=== PATIENT | female | born 1980 | race Caucasian/White ===

== ENCOUNTER → 2018-10-30 09:00 | Outpatient (CLI) | payer OTHER, SELFPAY ==
[2018-11-02 13:30] LABS: HPV Reflexed? NOT INDICATED
== END ==
PROVIDERS: Visit Provider Obstetrics & Gynecology
DX: Z12.4 Encounter for screening for malignant neoplasm of cervix (principal)
CPT/HCPCS: 87624; 88175; G0145

== ENCOUNTER → 2019-11-06 10:01 | Outpatient (CLI) | payer OTHER, SELFPAY ==
[2015-09-07 06:36] VITALS: BMI 23.7
[2019-11-06 11:17] LABS: EXAGEN MAILED SPECIMEN
[2019-11-06 12:20] LABS: Absolute Lymphocyte Count 1.91 X10^3/uL (0.83-4.51); Absolute Neutrophil Count 5.3 X10^3/uL (2.0-7.7); Basophil# 0.03 X10^3/uL; Basophil% 0.4 % (0-1); Eosinophil# 0.04 X10^3/uL; Eosinophils% 0.5 % (0-5); Hematocrit 44.7 % (37-47); Hemoglobin 14.6 g/dL (12.0-15.0); Lymphocyte # 1.91 X10^3/ul (4.0); Lymphocyte % 24.2 % (19-41); Mean Corp Hgb Conc 32.7 g/dL (32-36); Mean Corpuscular Hgb 29.6 pg (27.0-32.0); Mean Corpuscular Volume 90.5 fL (81-99); Mean Platelet Vol. 10.8 fl (6.2-12.0); Monocyte# 0.55 X10^3/uL; NRBC Flagged by Analyzer 0 % (0-5); Neutrophil # 5.33 X10^3/uL (2.7-7.7); Neutrophil % 67.5 % (47-70); Platelet Count 240 K/mm3 (150-450); RBC Distribution Width CV 12.4 % (11.6-14.6); Red Blood Count 4.94 M/mm3 (4.2-5.4); White Blood Count 7.9 K/mm3 (4.4-11.0)
[2019-11-06 12:21] LABS: ALB/GLOB Ratio 1.2 RATIO (0.9-2.4); AST(SGOT) 20 U/L (15-37); Alanine Aminotransfer ALT/SGPT 22 U/L (13-56); Albumin, Serum 4.3 g/dL (3.2-5.0); Alkaline Phosphatase 37 U/L (45-117); Anion Gap 6 (5-15); BUN 21 mg/dL (7-18); BUN/Creat Ratio 20.8 RATIO (10-20); CRP < 2.90 mg/L (0.0-3.0); Calcium,Total 9.1 mg/dL (8.5-10.1); Chloride 103 mmol/L (98-107); Color, Urine Yellow (Yellow); Creatinine, Serum 1.01 mg/dL (0.55-1.02); EST Glomerular Filtration Rate 64 mL/min (>60); Est Glom Filt Rate - Afr Amer 78 mL/min (>60); Globulin 3.6 g/dL (2.2-4.2); Glucose 85 mg/dL (74-106); Glucose, Dipstick Normal (Normal); Ketone-Dipstick Negative (Negative); Leukocyte Esterase-Dipstick Negative /ul (Negative); Nitrite-Dipstick Negative (Negative); Occult Blood-Urine Negative /ul (Negative); Potassium 3.8 mmol/L (3.5-5.1); Protein, Total 7.9 g/dL (6.4-8.2); Protein-Dipstick Negative (Negative); Sodium Level 137 mmol/L (136-145); Urine Bilirubin Dipstick Negative (Negative); Urine Clarity Clear (Clear); Urine Urobilinogen Normal (Normal)
[2019-11-06 12:33] LABS: Protein, Urine (Random) < 6.0 mg/dL (<11.9)
[2019-11-06 13:23] LABS: Hepatitis B Surface Antibody Reactive; Hepatitis B Surface Antigen Non-Reactive (Nonreactive); Hepatitis C Antibody Non-Reactive (Nonreactive)
[2019-11-06 22:32] LABS: Erythrocyte Sedimentation Rate < 1 mm/hr (0-20)
[2019-11-07 17:00] LABS: Hepatitis B Core AB IgM Negative (Negative)
== END ==
PROVIDERS: PCP Internal Medicine; Referring Provider Internal Medicine Rheumatology; Visit Provider Internal Medicine Rheumatology
DX: L40.59 Other psoriatic arthropathy (principal); R76.8 Other specified abnormal immunological findings in serum; L40.8 Other psoriasis; Q66.71 Congenital pes cavus, right foot; E03.9 Hypothyroidism, unspecified; I83.93 Asymptomatic varicose veins of bilateral lower extremities
CPT/HCPCS: 36415; 80053; 81002; 82570; 84156; 85025; 85652; 86140; 86705; 86706; 86803; 87340

== ENCOUNTER → 2021-06-08 09:00 | Outpatient (CLI) | payer OTHER, SELFPAY ==
[2021-06-11 20:05] LABS: HPV Reflexed? NOT INDICATED
== END ==
PROVIDERS: PCP Internal Medicine; Visit Provider Obstetrics & Gynecology
DX: Z12.4 Encounter for screening for malignant neoplasm of cervix (principal)
CPT/HCPCS: 88175; G0145

== ENCOUNTER → 2023-12-27 | Outpatient (CLI) | payer OTHER, SELFPAY ==
[2023-12-31 22:06] LABS: HPV APTIMA, High Risk Negative (Negative)
== END | disposition home or self-care (01) ==
LOC: LABSPEC 13:13
PROVIDERS: PCP Internal Medicine; Referring Provider Nurse Practitioner Women's Health; Visit Provider Nurse Practitioner Women's Health
DX: Z12.4 Encounter for screening for malignant neoplasm of cervix (principal)
CPT/HCPCS: 87624; 88175; G0145

== ENCOUNTER → 2024-01-02 | Outpatient (CLI) | payer OTHER, SELFPAY ==
--- NOTE | 2024-01-02 08:17 | US_ITS ---
INDICATION: bleeding EXAMINATION: Ultrasound US Pelvis Non OB Complete With Transvaginal Imaging COMPARISON: None. FINDINGS: 90 grayscale ultrasound images of the pelvis obtained both transabdominally and transvaginally. In addition dedicated ovarian color Doppler and Doppler waveform interrogation was performed. UTERUS: Uterus measures : 11.9 x 6.9 x 5.7 cm. Endometrial thickness of 0.7 cm, which contains trace amount of stool endometrial fluid. Myometrium is unremarkable. ADNEXA: Flow is documented to bilateral ovaries by color Doppler as well as Doppler waveform. Few scattered bilateral small peripheral ovarian follicles, dominant anechoic lesion of 1.6 cm on the right. Small amount of cul-de-sac free fluid. URINARY BLADDER: Adequately distended urinary bladder without obvious abnormality, 667 cc volume. US/Pelvic w/ Transvaginal IMPRESSION: Few scattered bilateral small peripheral ovarian follicles, dominant anechoic lesion of 1.6 cm on the right. Electronically Signed: Yonas Higuera MD at 6:28 EDT ,
== END | disposition home or self-care (01) ==
LOC: OPUS 08:15
PROVIDERS: PCP Internal Medicine; Referring Provider Nurse Practitioner Women's Health; Visit Provider Nurse Practitioner Women's Health
DX: N92.1 Excessive and frequent menstruation with irregular cycle (principal)
CPT/HCPCS: 76830; 76856

== ENCOUNTER → 2025-01-07 | Outpatient (CLI) | payer OTHER, SELFPAY | END | disposition home or self-care (01) | LOC: LABSPEC 15:45 | PROVIDERS: PCP Internal Medicine; Referring Provider Nurse Practitioner Women's Health; Visit Provider Nurse Practitioner Women's Health | DX: R30.0 Dysuria (principal); N92.1 Excessive and frequent menstruation with irregular cycle; R14.0 Abdominal distension (gaseous); N83.8 Other noninflammatory disorders of ovary, fallopian tube and broad ligament; N89.8 Other specified noninflammatory disorders of vagina | CPT/HCPCS: 87070; 87077; 87086; 87088; 87186; 87205 ==

== ENCOUNTER → 2025-01-20 | Outpatient (CLI) | payer OTHER, SELFPAY ==
--- NOTE | 2025-01-20 12:21 | US_ITS ---
PROCEDURE: PELVIC W/ TRANSVAGINAL REASON FOR EXAM: BLOATING, ENLARGE OVARY TECHNIQUE: PELVIC W/ TRANSVAGINAL COMPARISON: Prior study dated January 02, 2024. FINDINGS: LMP: January 02, 2025. Measurements: Uterus: 10.7 cm x 6 cm x 4.6 cm with a volume of 154.7 mL Endometrial Thickness: 11.9 mm there appears to be a 1.1 cm x 0.6 cm x 0.5 cm endometrial polyp. Right Ovary: 3.9 cm x 3.1 cm x 2.8 cm with a volume of 17.24 mL. Left Ovary: 1.6 cm x 1.5 cm x 1.4 cm with a volume of 393.7 mL. TRANSABDOMINAL: Uterus: Heterogeneous echotexture of the myometrium suggestive of fibroid change although no definite fibroid is seen. Nabothian cysts. Endometrium: 11.9 mm. Endometrial polyp. Right ovary: 3.5 cm x 2.7 cm x 2.4 cm right ovarian cyst. Left ovary: Normal size and echotexture. Other: No large pelvic mass identified. Transvaginal sonography was performed to better visualize the endometrium. TRANSVAGINAL: Uterus: Fibroid change. Endometrium: Endometrium measures 11.9 mm. There is evidence of a 1.1 cm x 0.6 cm 0.5 cm endometrial polyp. Right ovary: 3.5 cm x 2.7 cm x 2.4 cm simple right ovarian cyst. Left ovary: Normal size and echotexture. Other adnexal findings: None. Cul-de-sac: No free intraperitoneal fluid identified. Tenderness: No tenderness US/Pelvic w/ Transvaginal IMPRESSION: Fibroid change of the myometrium. Small polyp in the endometrium as described. 3.5 cm x 2.7 cm 2.4 cm simple right ovarian cyst. Reading Location: [place] [id number]
== END | disposition home or self-care (01) ==
PROVIDERS: PCP Internal Medicine; Referring Provider Nurse Practitioner Women's Health; Visit Provider Nurse Practitioner Women's Health
DX: N92.1 Excessive and frequent menstruation with irregular cycle (principal); R14.0 Abdominal distension (gaseous); N83.8 Other noninflammatory disorders of ovary, fallopian tube and broad ligament
CPT/HCPCS: 76830; 76856

== ENCOUNTER → 2025-03-26 | Outpatient (CLI) | payer OTHER, SELFPAY ==
--- NOTE | 2025-03-26 12:46 | US_ITS ---
PROCEDURE: PELVIC W/ TRANSVAGINAL REASON FOR EXAM: F/U ON CYST TECHNIQUE: Procedure Code: [id number] Modality: US Procedure: PELVIC W/ TRANSVAGINAL COMPARISON: Prior study dated January 20, 2025. FINDINGS: Measurements: Uterus: 10.8 cm x 7.6 cm x 5.9 cm with a volume of 292.4 mL Endometrial Thickness: 13 mm. Right Ovary: 3 cm x 3.7 cm x 1.2 cm with a volume of 10.4 mL. Left Ovary: 3.2 cm x 3.6 cm x 2.1 cm with a volume of 17 mL. TRANSABDOMINAL: Uterus: Heterogeneous echotexture in keeping with fibroid change although no focal fibroid is seen. Endometrium: Endometrium measures 13 mm. This may be related to the patient's menstrual cycle. Right ovary: Normal size and echotexture. The previously seen right ovarian cyst has resolved. Left ovary: Normal size and echotexture. Other: No large pelvic mass identified. Transvaginal sonography was performed to better visualize the endometrium. TRANSVAGINAL: Uterus: Anteverted. Fibroid change although no focal fibroid is seen. There is evidence of a 9 mm x 11 mm x 4 mm endometrial polyp. Endometrium: Findings suggestive of a 9 mm x 11 mm x 4 mm endometrial polyp. Right ovary: Normal size and echotexture. Left ovary: Normal size and echotexture. Other adnexal findings: None. Cul-de-sac: No free intraperitoneal fluid identified. Tenderness: No tenderness US/Pelvic w/ Transvaginal IMPRESSION: Interval resolution of the previously seen right ovarian cyst. Findings suggestive of a 9 mm x 11 mm x 4 mm polyp. Reading Location: [place] [address]
== END | disposition home or self-care (01) ==
LOC: US 12:42
PROVIDERS: Referring Provider Nurse Practitioner Women's Health; Visit Provider Nurse Practitioner Women's Health
DX: N83.201 Unspecified ovarian cyst, right side (principal)
CPT/HCPCS: 76830; 76856

== ENCOUNTER → 2025-04-01 | Outpatient (CLI) | payer OTHER, SELFPAY | END | disposition home or self-care (01) | LOC: LABSPEC 12:09 | PROVIDERS: Referring Provider Obstetrics & Gynecology; Visit Provider Obstetrics & Gynecology | DX: R10.2 Pelvic and perineal pain (principal) | CPT/HCPCS: 87086 ==

== ENCOUNTER 2025-04-08 10:18 | Day surgery (SDC) | payer OTHER, SELFPAY ==
--- OUTSIDE RECORDS SUMMARY | 2025-02-22 13:12 | XMS RPT_ITS ---
Author Name Auto Generated Organization OHIP Care Team Providers Care Refractory Worker Name Role Phone YG COPELAND MD Consulting Unavailable PAULINASOFIA Camejo Admitting Unavailable PAULINA, SOFIA MERCADO Attending Unavailable PAULINA, SOFIA MERCADO Primary Care Unavailable PROVIDER, UNKNOWN Consulting Unavailable PROVIDER, UNKNOWN Consulting Unavailable PROVIDER, UNKNOWN Consulting Unavailable YG COPELAND MD Consulting Unavailable [facility] Admitting Unavailable [facility] Attending Unavailable [facility] Primary Care Unavailable PROVIDER, UNKNOWN Consulting Unavailable PROVIDER, UNKNOWN Consulting Unavailable PROVIDER, UNKNOWN Consulting Unavailable YG COPELAND MD Primary Care Unavailable YG COPELAND MD Admitting Unavailable YG COPELAND MD Attending Unavailable YG COPELAND MD Consulting Unavailable PROVIDER, UNKNOWN Consulting Unavailable PROVIDER, UNKNOWN Consulting Unavailable PROVIDER, UNKNOWN Consulting Unavailable TOMASA, LIZBETH Y Admitting Unavailable LATOUYG Grissom MD Consulting Unavailable TOMASA, LIZBETH Y Attending Unavailable TOMASA, LIZBETH Y Primary Care Unavailable PROVIDER, UNKNOWN Consulting Unavailable PROVIDER, UNKNOWN Consulting Unavailable PROVIDER, UNKNOWN Consulting Unavailable YG COPELAND MD Consulting Unavailable JACOME, RODNEY Admitting Unavailable JACOME, RODNEY Attending Unavailable JACOME, RODNEY Primary Care Unavailable PROVIDER, UNKNOWN Consulting Unavailable PROVIDER, UNKNOWN Consulting Unavailable PROVIDER, UNKNOWN Consulting Unavailable JOSE, FERMIN E Admitting Unavailable JOSE, FERMIN aLma Attending Unavailable JOSE, FERMIN E Primary Care Unavailable PROBLEMS DATE TYPE CONDITION / CODE ATTENDING STATUS MEGHNA E 09/10/2024 Principle Diagnosis Encounter for general adult medical examination without abnormal findings / Z0000(ICD-10) YG COPELAND MD Active [facility] PROCEDURES No Procedure Records Found RESULTS ED SUPER BILL Observed: 02/22/2025 1:12 PM Status: F Source: [facility] BIANCA RAO, : 1980, , [address] [address] [id number] 02/22/2025 Patient: BIANCA RAO Sex: Female : 1980 Age: 44y Item Facility Professional Category Description Code Code Quantity Fee Total Nurse/E/M EMERGENCY 886621 1 $0.00 $0.00 DEPARTMENT VISIT LOW/MODER SEVERITY (35749-93) Nurse/IV/IM/Infusions IM/SQ (23985) 986122 1 $0.00 $0.00 Nurse/Procedures One vaccine 603469 1 $0.00 $0.00 (11897) Nurse/Supplies Laceration 980224 1 $0.00 $0.00 Tray (767017) Nurse/Supplies Suture (per 240103 1 $0.00 $0.00 pack) (400518) Physician/Wound Wound Repair [id number] 568649 1 $0.00 $0.00 Care (55987) Grand Total $0.00 Providers Fermin Garcia D.O. 1 of 2 [facility] - BIANCA RAO, : 1980, , Chief Complaint INJURY TO HEAD. Principal Diagnosis Minor closed head injury. Single deep laceration to the forehead. No foreign body present. Treatment of laceration not delayed. ICD-10 Codes S01.81xA: Laceration without foreign body of other part of head, initial encounter S06.890A: Other specified intracranial injury without loss of consciousness, initial encounter 2 of 2 ED NURSES CLINICAL NOTE Observed: 2024 1:12 PM Status: F Source: [facility] Nurse Narrative - JIM RAO, : 1980, , Nurse Clinical Narrative [address] [address] [id number] 02/22/2025 13:12:00 Patient: BIANCA RAO Sex: Female : 1980 Age: 44y Disposition: Discharge to Home Disposition Decision Time: 14:14 02/22/2025 Departure Time: 14:20 02/22/2025 TRIAGE Arrived by private vehicle. Historian: (patient). Patient has a primary care physician. Primary physician (formerly vandana). Triage time: 13:29 02/22/2025. Acuity: LEVEL 4. Chief Complaint: INJURY TO FOREHEAD. The patient sustained a laceration. Mechanism of injury: puncture wound. ( pt states she was moving a ladder and knocked a deer mount off the wall and an antler hit her above the left brow. wound present, bleeding controlled.). No loss of consciousness. Not currently taking anticoagulation therapy. SEPSIS SCREEN: NEGATIVE. SIRS criteria negative. No possible sources of infection. -- 13:35 02/22/25 RANJITH Marin R.N. 13:34 02/22/25. BP: 102/60 MAP: 74. HR: 52. RR: 16. O2 saturation: 98% Temperature: 98.3 F. Pain level now 12/17. -- 13:35 02/22/25 RANJITH Marin R.N. Measurements: 13:35 02/22/25 Wt: 71.7 kg, Ht/Migel: 67.0 in, BMI: 24.75 -- 13:35 02/22/25 RANJITH Marin R.N. Medications: levothyroxine 175 mcg tablet -- 13:32 02/22/25 RANJITH Marin R.N. 1 of 4 Nurse Narrative - BIANCA RAO, : 1980, , levothyroxine 175 mcg tablet: 350 mcg . (one day a week) -- 13:34 02/22/25 RANJITH Marin R.N. levothyroxine 175 mcg tablet: (six days a week) -- 13:34 02/22/25 RANJITH Marin R.N. liothyronine 25 mcg tablet -- 13:36 02/22/25 RANJITH Marin R.N. Allergies: Penicillins -- 13:31 02/22/25 RAFIT Pete Marin R.N. Problems: Hypothyroidism -- 13:32 02/22/25 RANJITH Marin R.N. Surgeries: deep vein ablation -- 13:32 02/22/25 RANJITH Marin R.N. History 13:29 02/22/25. SOCIAL HX: Never smoker. No alcohol use or drug use. The patient has not traveled outside the [place] Infectious disease exposure: No infectious disease exposure. ABUSE ASSESSMENT: Abuse denied. SELF HARM ASSESSMENT: Self harm assessment was performed. The patient answered no to the question(s) Do you have thoughts of harming or killing yourself? and Do you have a plan for harming or killing yourself?. FALL RISK ASSESSMENT: Fall risk assessment completed. No risk factors identified. -- 13:35 02/22/25 EDT Ptee Marin R.N. Interventions 13:29 02/22/25. Advanced care plan discussed with patient. Patient does not have advanced directive. -- 13:35 02/22/25 EDT Pete Marin R.N. PHYSICAL ASSESSMENT 2 of 4 Nurse Narrative - BIANCA RAO, : 1980, , 13:41 02/22/25. GENERAL / NEURO / PSYCH: Alert. Oriented X 4. Appears in no acute distress. ( Pt arrives ambulatory to ER#6 c/o forehead laceration, 1 cm laceration to the left lower forehead with bleeding controlled. Pt offers deer head mount fell approximately 2-3 inches onto her head. PT reports she did fall back due to pain, denies LOC. Pt offers attempted to go to urgent care but was sent here for a further evaluation.). Pupillary exam: Pupils are equal, round, and reactive to light. Right pupil 3mm. Left pupil: 3mm. HEENT: Forehead: tenderness, 1.0 cm laceration with controlled bleeding and single puncture wound of the lower left side of the forehead. No erythema, swelling, ecchymosis, petechiae or abrasion. No foreign body or deformity. Pupils equal, round and reactive to light. No swelling of head. Mucous membranes are pink. SKIN: Skin is warm and dry. -- 13:46 02/22/25 EDT Keke Mccormick R.N. NURSING PROGRESS NOTES 13:43 02/22/25. ED physician at the patient's bedside (13:43 02/22/2025). -- 13:46 02/22/25 EDT Keke Mccormick R.N. 13:49 02/22/25. Tdap IM DIPTH/TETANUS/PERT > 7yr and older 0.5 mL given. (Lot#: [id number], expiration date: 05/08/2027, rubber off: [email or web address]). Given in the left deltoid. Allergies verified and confirmed 5 rights. Information reviewed with patient. Vaccine information statement (08/09/2024) provided to the patient. -- 13:50 02/22/25 EDT Keke Mccormick R.N. 13:58 02/22/25. WOUND REPAIR: Wound repair performed by ED physician. The wound is located on the forehead. The wound is linear. Preparation: suture tray set-up with 2% lidocaine. Wound cleansed per physician and irrigated per physician. Procedure: wound repaired with sutures. Post-procedure: the patient was stable, bleeding controlled and neuro-vascular status intact distal to wound. -- 13:59 02/22/25 EDT Keke Mccormick R.N. DISPOSITION / DISCHARGE 14:19 02/22/25. BP: 120/60 MAP: 80. HR: 52. RR: 14. O2 saturation: 97% Temperature: 98.2 F. Pain level now 2/10. -- 14:20 02/22/25 EDT Pete Marin R.N. Departure time: 14:20 02/22/2025. Condition at departure: improved. No learning barriers present. Discharge instructions provided and reviewed with the patient. Patient verbalized understanding. Written instructions provided in Yoruba. The patient was discharged by the physician. The patient was discharged home and accompanied by parent. The patient left ambulatory and via private vehicle. Patient driving. -- 14:20 02/22/25 EDT Pete Marin R.N. (Electronically signed by Keke Mccormick R.N. 02/22/25 14:50:40 EDT) 3 of 4 Nurse Narrative - BIANCA RAO, : 1980, , Generated by [facility] 4 of 4 ED PHYSICIAN CLINICAL REPORT Observed: 02/22/2025 1:12 PM Status: F Source: [facility] Narrative - BIANCA RAO, : 1980, , Physician Clinical Narrative [address] [address] [id number] 02/22/2025 13:12:00 Patient: BIANCA RAO Sex: Female : 1980 Age: 44y Disposition: Discharge to Home Disposition Decision Time: 14:14 02/22/2025 Departure Time: 14:20 02/22/2025 Measurements Wt: 71.7 kg, Ht/Migel: 67.0 in, BMI: 24.75 Initial Vital Sign Measured Time BP MAP HR RR O2Sat ETCO2 Temp Pain GCS RTS 13:34 02/22/2025 102/60 74 52 16 98% 98.3 F 6 Time Seen: 13:36 02/22/2025. Arrived- By private vehicle. Historian- patient. HISTORY OF PRESENT ILLNESS Chief Complaint: INJURY TO HEAD. Location of injuries- (patient was cleaning and a deer antler fell and struck her in the left side of the forehead. She complained of pain to the forehead. Fell about 3 ft with constant burning pain nothing makes better or worse. He has been a healthy person other than some vein surgeries. She does not smoke she rarely drinks alcohol and presents to the emergency department after being at the urgent care and they sent her here to the emergency department). The injury occurred just prior to arrival. Occurred at home. The patient sustained a blow and laceration. The patient complains of mild pain. The patient sustained a blow to the head. No loss of consciousness. Not dazed. 1 of 4 Narrative - BIANCA RAO, : 1980, , REVIEW OF SYSTEMS NEUROLOGICAL: No numbness or weakness. RESPIRATORY: No difficulty breathing. EYES: No loss of vision. GI: No nausea or vomiting. EARS: No hearing loss. PAST HISTORY See nurses notes. Last tetanus immunization greater than 5 years ago. Hypothyroidism Surgeries: deep vein ablation Medications: levothyroxine 175 mcg tablet: (six days a week) levothyroxine 175 mcg tablet: 350 mcg . (one day a week) liothyronine 25 mcg tablet Allergies: Penicillins SOCIAL HISTORY Never smoker. Occasional alcohol use. ADDITIONAL NOTES The nursing notes have been reviewed. PHYSICAL EXAM Appearance: Alert. No acute distress. Head: Head non-tender. No swelling of head. Forehead: mild erythema and tenderness, deep 1.0 cm laceration with controlled bleeding and single puncture wound of the left side of the forehead. No swelling, ecchymosis, petechiae or abrasion. No avulsion. Eyes: Pupils equal, round and reactive to light. EOM intact. ENT: No dental injury. Pharynx normal. 2 of 4 Narrative - BIANCA RAO, : 1980, , Neck: Neck non-tender. Painless ROM. CVS: Heart sounds normal. Pulses normal. Respiratory: Painless inspiration. Chest nontender. Abdomen: Soft and nontender. Back: No tenderness. ROM normal. Skin: Skin intact. Skin warm and dry. (1 cm laceration of the left side of the forehead). Extremities: Normal inspection. Extremities atraumatic. Neuro: Oriented X 3. Mood/affect normal. Speech normal. PROGRESS AND PROCEDURES Laceration Repair: Time: 13:54 02/22/2025. Location: forehead. Length: 1.0cm. Complexity: simple (local anesthesia used and sutured). Distal neuro/vascular/tendon status normal. Local anesthesia provided using 0.50% Marcaine. Wound explored, cleansed and irrigated extensively. Closure of fascia: 4-0. Post-procedure: the patient is stable. Tetanus immunization given. MEDICAL DECISION MAKING: (patient was cleaning and a deer antler fell and struck her in the left side of the forehead. She complained of pain to the forehead. Fell about 3 ft with constant burning pain nothing makes better or worse. SHe has been a healthy person other than some vein surgeries. She does not smoke she rarely drinks alcohol and presents to the emergency department after being at the urgent care and they sent her here to the emergency department. that has splint risks and benefits of suturing. Which patient accepted. She was anesthetized with bupivacaine. Patient was copiously irrigated I do not feel or see any obvious step-offs of where the laceration was. She is acting appropriate. I did place 2 4-0 rapid Vicryl sutures and she tolerated procedure well. Her tetanus was also updated). Disposition: Condition: stable. Discharged in fair condition. Discharge decision based on the following: patient's condition is stable; patient's exam is stable. CLINICAL IMPRESSION Minor closed head injury. Single deep laceration to the forehead. No foreign body present. Treatment of laceration not delayed. DISCHARGE INSTRUCTIONS Protect wound and keep wound area clean. Follow-up with: Paola Horner MD, [facility], Internal Medicine, Phone: [phone], 3 of 4 Narrative - BIANCA RAO, : 1980, , [address] [place] [address]. Follow up in hours. (follow up with Dr. Horner or whomever you choose see a family doctor. keep clean and dry. sutures will dissolve. watch for signs of infection - red hot swelling pain. return if any problems or concerns.). (Electronically signed by Fermin Garcia D.O. 02/22/25 21:20:23 EDT) Generated by [facility] 4 of 4 ED VITALS FLOW SHEET Observed: 1:12 PM Status: F Source: [facility] Vitals - BIANCA RAO, DO B: 1980, , Vital Sign Flow Sheet [address] [address] [id number] 02/22/2025 Patient: BIANCA RAO Sex: Female : 1980 Age: 44y Measurements Wt: 71.7 kg, Ht/Migel: 67.0 in, BMI: 24.75 Measured Time BP MAP HR RR O2Sat ETCO2 Temp Pain GCS RTS 14:19 02/22/2025 120/60 80 52 14 97% 98.2 F 2 13:34 02/22/2025 102/60 74 52 16 98% 98.3 F 6 1 of 1 ED VISIT SUMMARY Observed: 02/22/2025 1:12 PM Status: F Source: [facility] Visit Overview - BHARAT RAO, : 1980, , Visit Overview [address] [address] [id number] 02/22/2025 Patient: BIANCA RAO Sex: Female : 1980 Age: 44y 02/22/2025 09:20 PM EDT ED Arrival:13:12 02/22/2025 EDT Status: Recent Travel:no Language:eng Adv Directive:No Isolation Status: Ethnicity:N Fall Risk:no risk Infectious Disease Exposure:no Measurements:5'7 / 170.2 Self-Harm Status:no risk Sepsis Screen:negative cm 158.0 lb / 71.7 kg Chief Complaint:INJURY TO FOREHEAD, (formerly latouf), and (pt states she was moving a ladder and knocked a deer mount off the wall and an antler hit her above the left brow. wound present, bleeding controlled. ) ALLERGIES Penicillins HOME MEDICATIONS levothyroxine 175 mcg tablet: (six days a week) levothyroxine 175 mcg tablet: 350 mcg . (one day a week) 1 of 3 Visit Overview - BIANCA RAO, : 1980, , liothyronine 25 mcg tablet PAST MEDICAL HISTORY / PROBLEMS Hypothyroidism Last tetanus immunization greater than 5 years ago See nurses notes PAST SURGICAL HISTORY deep vein ablation SOCIAL HISTORY Smoking status: No Alcohol use: No Drug use: No ED COURSE MEDICATIONS GIVEN IN EMERGENCY DEPARTMENT 13:49 02/22/25 Tdap IM DIPTH/TETANUS/PERT > 7yr and older 0.5 mL IV SITE INFORMATION INTAKE OUTPUT REASSESMENT (most recent) 13:41 02/22/25. GENERAL / NEURO / PSYCH: Alert. Oriented X 4. Appears in no acute distress. ( Pt arrives ambulatory to ER#6 c/o forehead laceration, 1 cm laceration to the left lower forehead with bleeding controlled. Pt offers deer head mount fell approximately 2-3 inches onto her head. PT reports she did fall back due to pain, denies LOC. Pt offers attempted to go to urgent care but was sent here for a further evaluation.). Pupillary exam: Pupils are equal, round, and reactive to light. Right pupil 3mm. Left pupil: 3mm. HEENT: Forehead: tenderness, 1.0 cm laceration with controlled bleeding and single puncture wound of the lower left side of the forehead. No erythema, swelling, ecchymosis, petechiae or abrasion. No foreign body or deformity. Pupils equal, round and reactive to light. No swelling of head. Mucous membranes are pink. SKIN: Skin is warm and dry. 2 of 3 Visit Overview - BIANAC RAO : 1980, , VITAL SIGNS First Vitals Last Vitals Temp 13:34 02/22/25 98.3 F Temp 14:19 02/22/25 98.2 F BP 13:34 02/22/25 102/60 BP 14:19 02/22/25 120/60 HR 13:34 02/22/25 52 HR 14:19 02/22/25 52 RR 13:34 02/22/25 16 RR 14:19 02/22/25 14 O2 Sat 13:34 02/22/25 98% O2 Sat 14:19 02/22/25 97% Pain 13:34 02/22/25 6 Pain 14:19 02/22/25 2 ETCO2 13:34 02/22/25 ETCO2 14:19 02/22/25 GCS 13:34 02/22/25 GCS 14:19 02/22/25 RTS 13:34 02/22/25 RTS 14:19 02/22/25 PROCEDURES Wound repair NURSING INTERVENTIONS LABS / STUDIES CLINICAL IMPRESSION MINOR CLOSED HEAD INJURY SINGLE DEEP LACERATION TO THE FOREHEAD. NO FOREIGN BODY PRESENT. TREATMENT OF LACERATION NOT DELAYED 3 of 3 ED ORDER SHEET (CPOE ONLY) Observed: 1:12 PM Status: F Source: [facility] Order Sheet - ADILIA RAO Kelby, : 1980, , Order Sheet [address] [address] [id number] 02/22/2025 Patient: BIANCA RAO Sex: Female : 1980 Age: 44y MEASUREMENTS: Wt: 71.7 kg, Ht/Migel: 67.0 in, BMI: 24.75 ALLERGIES: Penicillins MEDICATION/IV/DRIP/FLUID ORDERS Order Description Priority Entered Acknowledged Completed Bupivacaine (PF) Intradermal 13:46 02/22/2025 13:47 13:52 0.5 %5 mL (NOW x1) Fermin Garcia, 02/22/2025 02/22/2025 Keke Miller R.N. R.N. Order Comments: 13:52 02/22/2025: Provided to Order Completed. Keke Mccormick R.N. Tdap IM DIPTH/TETANUS/PERT 13:47 02/22/2025 13:47 13:50 > 7yr and older0.5 mL (NOW x1) Fermin Garcia, 02/22/2025 02/22/2025 Keke Miller R.N. R.N. LAB ORDERS Order Description Priority Entered Acknowledged Collected Completed DIAGNOSTIC STUDY ORDERS Order Description Priority Entered Acknowledged Completed STAFF ORDERS Order Description Priority Entered Acknowledged Collected Completed 1 of 2 Order Sheet - BIANCA RAO, : 1980, , [Electronically signed by Fermin Garcia D.O. (02/22/2025 21:20 EDT)] 2 of 2 ED MED ADMINISTRATION DETAIL Observed: 0 02/22/2025 1:12 PM Status: F Source: [facility] Attendant Lodging Facilities - BIANCA RAO : 1980, , Medication Administration Record [address] [address] [id number] 02/22/2025 Patient: BIANCA RAO Sex: Female : 1980 Age: 44y MEASUREMENTS: Wt: 71.7 kg, Ht/Migel: 67.0 in, BMI: 24.75 ALLERGIES: Penicillins Medication Ordered Medication Administration Date/Time Bupivacaine (PF) Completed Intradermal 0.5 % 5 13:52 02/22/2025 mL Keke Mccormick R.N. Order Comments: 13:52 02/22/2025 Provided to Order Completed. Keke Mccormick R.N. Tdap IM 13:49 02/22 Tdap IM Given DIPTH/TETANUS/P DIPTH/TETANUS/PERT > 7yr 13:49 02/22/2025 ERT > 7yr and older and older 0.5 mL given. (Lot#: [id number]. 0.5 mL (NOW x1) [id number], expiration date: Scanned 05/08/2027, rubber off: [email or web address]). Given in the left deltoid. Allergies verified and confirmed 5 rights. Information reviewed with patient. Vaccine information statement (08/09/2024) provided to the patient. - 13:50 Keke Mccormick R.N. 1 of 1 URINE CULTURE [CCL] Observed: 02/18/2025 5:31 PM Status: F Source: [facility] URCUL See Results Below See Below CULTURE, URINE ENTEROCOCCUS FAECALIS 10,000 -<50,000 CFU/ml Enterococcus faecalis Cephalosporins, clindamycin, and TMP-SMX are not effective for the treatment of ORGANISM: ENTEROCOCCUS FAECALIS ANTIBIOTIC BHARAT DILUTN BHARAT INTERP Ampicillin <=2 Susceptible Vancomycin 1 Susceptible Nitrofurantoin <=16 Susceptible This test was developed and its performance characteristics determined by the [facility] [place] ([facility]). It has not been cleared or approved by the FDA. [facility] is regulated under CLIA as qualified to perform high-complexity testing. This test is used for clinical purposes. It should not be regarded as investigational or for research. SOURCE: Urine (Nonspecific) [facility] [address] [place] [address] Jorgito Richardson III, M.D. [id number] SEND TO YES Performed By: #### [id number] ## ## [place] [id number] TSH Collected: 8:39 AM Status: F Source: [facility] TYPE CODE TESTS RESULT OUT OF RANGE REFERENCE UNITS LAB TSH(LOINC) TSH 0.74 0.35 - 3.74 uIU/ml Performed By: #### [id number] ## ## [place] [id number] T4-FREE (FREE THYROXINE) Collected: 05/2025 8:39 AM Status: F Source: [facility] TYPE CODE TESTS RESULT OUT OF RANGE REFERENCE UNITS LAB T4 FREE(LOINC) T4 FREE 1.03 0.76 - 1.46 ng/dl Result Comment: Potential of falsely elevated results when biotin concentrations are > 10 ng/mL. Performed By: #### [id number] ## ## [place] [id number] T3, FREE [CCL] Collected: 5 8:39 AM Status: F Source: [facility] TYPE CODE TESTS RESULT OUT OF RANGE REFERENCE UNITS LAB FREET3(LOINC) Free T3 3.8 2.3-4.1 pg/mL Result Comment: [facility] [address] [place] [address] Jorgito Richardson III, M.D. [id number] Performed By: #### [id number] ## ## [address] [id number] CMP WITH EGFR Collected: 5 7:11 AM Status: F Source: [facility] TYPE CODE TESTS RESULT OUT OF RANGE REFERENCE UNITS LAB CMP with eGFR(LOINC) CMP with eGFR Result Comment: COMPREHENSIV E METABOLIC PANEL LAB SODIUM(LOINC) SODIUM 136 136 - 145 mmol/l LAB POTASSIUM(LOIN C) POTASSIUM 4.1 3.5 - 5.1 mmol/L LAB CHLORIDE(LOINC ) CHLORIDE 102 98 - 107 mmol/L LAB CO2(LOINC) CO2 28.0 21.0 - 32.0 mmol/L LAB GLUCOSE(LOINC) GLUCOSE 90 74 - 106 mg/dl LAB BUN(LOINC) BUN 23 High 7 - 18 mg/dl LAB CREATININE(NANCY NC) CREATININE 0.97 0.55 - 1.02 mg/dl LAB AST/SGOT(LOINC ) AST/SGOT 19 13 - 39 U/L LAB ALK PHOS(LOINC) ALK PHOS 32 Low 46 - 116 U/L LAB CALCIUM(LOINC) CALCIUM 8.8 8.5 - 10.1 mg/dl LAB TOTAL PROTEIN(LOINC) TOTAL PROTEIN 7.0 6.4 - 8.2 g/dl LAB ALBUMIN(LOINC) ALBUMIN 3.9 3.4 - 5.0 g/dL LAB GLOBULIN(LOINC ) GLOBULIN 3.1 1.5 - 3.8 G/DL LAB A/G RATIO(LOINC) A/G RATIO 1.3 0.9 - 1.6 LAB TOTAL BILI(LOINC) TOTAL BILI 0.5 0.2 - 1.0 mg/dl LAB B/C RATIO(LOINC) B/C RATIO 24 0 - 30 ratio LAB ALT/SGPT(LOINC ) ALT/SGPT 21 16 - 63 U/L LAB ANION GAP(LOINC) ANION GAP 10 10 - 20 mmol/L LAB AGE(LOINC) AGE 44 years LAB eGFR(LOINC) eGFR >60 60 - 999 ML/MINUT E LAB eGFR(AA)(LOINC ) eGFR(AA) >60 60 - 999 ML/MINUT E Result Comment: ACCORDING TO THE NATIONAL KIDNEY DISEASE EDUCATION PROGRAM(NKDE), A NORMAL eGFR IS A VALUE GREATER THAN OR EQUAL TO 60 ML/MIN/1.73 SQ METERS. CHRONIC KIDNEY DISEASE: <60mL/MIN/1.73 SQ METERS KIDNEY FAILURE: <15mL/MIN/1.73 SQ METERS THIS TEST SHOULD ONLY BE USED FOR PATIENTS 18 YEARS OF AGE AND OLDER. Performed By: #### [id number] ## ## [facility],[address] [place] [address] CBC + DIFF Collected: 5 7:11 AM Status: F Source: [facility] TYPE CODE TESTS RESULT OUT OF RANGE REFERENCE UNITS LAB CBC + DIFF(LOINC) CBC + DIFF Result Comment: CBC-COMPLETE BLOOD COUNT LAB WBC(LOINC) WBC 5.9 4.5 - 10.8 x 10EE3/UL LAB RBC(LOINC) RBC 4.60 4.10 - 5.30 x 10EE6/UL LAB HEMOGLOBIN(NANCY NC) HEMOGLOBIN 13.8 12.0 - 16.0 g/dl LAB HEMATOCRIT(NANCY NC) HEMATOCRIT 40.8 34.0 - 46.0 % LAB MCV(LOINC) MCV 89 80 - 99 fl LAB MCH(LOINC) MCH 30 27 - 33 pg LAB MCHC(LOINC) MCHC 34 32 - 36 X10 3 LAB RDW/CV(LOINC) RDW/CV 13.2 12.0 - 15.6 % LAB PLATELET(LOINC ) PLATELET 239 150 - 450 x10EE3/UL LAB MPV(LOINC) MPV 9.3 6.6 - 10.5 fl Result Comment: AUTOMATED DI FFERENTIAL LAB NEUT %(LOINC) NEUT % 63.3 46.0 - 76.0 % LAB LYMPH %(LOINC) LYMPH % 26.7 20.0 - 45.0 % LAB MONOS %(LOINC) MONOS % 8.0 0.0 - 10.0 % LAB EO %(LOINC) EO % 1.7 0.0 - 7.0 % LAB BASO %(LOINC) BASO % 0.3 0.0 - 2.0 % LAB Lymph #(LOINC) Lymph # 1.58 0.80 - 2.80 x10EE 3/UL LAB Neut #(LOINC) Neut # 3.76 1.50 - 7.10 x10EE3 /UL LAB [place] #(LOINC) [place] # 0.48 0.20 - 1.00 x10EE3 /UL LAB EO #(LOINC) EO # 0.10 0.00 - 0.50 x10EE3/U L LAB Baso #(LOINC) Baso # 0.02 0.00 - 0.10 x10EE3 /UL LAB MANUAL DIFF(LOINC) MANUAL DIFF N/A LAB MORPHOLOGY(NANCY NC) MORPHOLOGY N/A Performed By: #### [id number] ## ## [place] [id number] LIPID PROFILE Collected: 09/10/2024 7:11 AM Status: F Source: [facility] TYPE CODE TESTS RESULT OUT OF RANGE REFERENCE UNITS LAB LIPID PROFILE(LOINC) LIPID PROFILE Result Comment: LIPID PROFIL E LAB TRIGLYCERIDE(NANCY NC) TRIGLYCERIDE 54 0 - 150 mg/dl LAB CHOLESTEROL(LOIN C) CHOLESTEROL 193 0 - 240 mg/dl LAB HDL(LOINC) HDL 94 High 40 - 60 mg/dl LAB CHOL/HDL(LOINC) CHOL/HDL 2.1 0.0 - 5.0 LAB LDL(LOINC) LDL 88 0 - 129 mg/dl Performed By: #### [id number] ## ## [place] [id number] 3D MAMM BILAT SCREEN Observed: 5 11:29 AM Status: F Source: [address] [address] Patient: BIANCA RAO Phone#: : 1980 Age: 44 Gender: F Pt. Type: Out Account: [id number] Location: Ordering: SOFIA PAULINA Exam Date: 08/09/2024/11:02 Family Phys: YG COPELAND Charge Code: [id number] Physician: [place] Order #: [id number] Dose#: PROCEDURE: BILATERAL SCREENING BREAST TOMOSYNTHESIS MAMMOGRAM WITH CAD COMPARISON: [facility], 3D BILAT SCREEN, 11/22/2021, 11:16. [facility], 3D BILAT SCREEN, 05/18/2023, 11:02. INDICATIONS: Screening. BREAST COMPOSITION: Heterogeneously dense, which may obscure small masses. FINDINGS: DIAGNOSTIC CATEGORY 1--NEGATIVE NO CHANGE FROM COMPARISON ASSESSMENT. RIGHT BREAST: No significant suspicious finding. No significant change has occurred. LEFT BREAST: No significant suspicious finding. No significant change has occurred. RECOMMENDATIONS: ROUTINE MAMMOGRAM AND CLINICAL EVALUATION IN 12 MONTHS. PLEASE NOTE: A NORMAL MAMMOGRAM DOES NOT EXCLUDE THE POSSIBILITY OF BREAST CANCER. A CLINICALLY SUSPICIOUS PALPABLE LUMP SHOULD BE BIOPSIED. THIS FACILITY UTILIZES A REMINDER SYSTEM TO ENSURE THAT ALL PATIENTS RECEIVE REMINDER LETTERS FOR APPOINTMENTS. THIS INCLUDES REMINDERS FOR ROUTINE MAMMOGRAMS, DIAGNOSITC MAMMOGRAMS, OR OTHER BREAST IMAGING INTERVENTIONS WHEN APPROPRIATE. THIS PATIENT WILL BE PLACED IN THE APPROPRIATE REMINDER SYSTEM. Dictated by: Marlene Noyola MD on 08/09/2024 at 12:49 Approved by: Marlene Noyola MD on 08/09/2024 at 12:59 FOLATES Collected: 4 12:33 PM Status: F Source: [facility] TYPE CODE TESTS RESULT OUT OF RANGE REFERENCE UNITS LAB FOLATES(LOINC) FOLATES 10.3 8.6 - 58.9 ng/ml Performed By: #### [id number] ## ## [address] [address] VITAMIN D, 25 HYDROXY Collected: 2023 12:33 PM Status: F Source: [facility] TYPE CODE TESTS RESULT OUT OF RANGE REFERENCE UNITS LAB VitD(LOINC) VitD 39.50 30.00 - 100 ng/mL Result Comment: 25-OHD3 jeanie cates both endogenous production and supplementation. 25-OHD2 is an indicator of exogenous sources, such as diet or supplementation. Therapy is based on measurement of Total 25-OHD, with levels <20 ng/mL indicative of Vitamin D deficiency, while levels between 20 ng/mL and 30 ng/mL suggest insufficiency. Optimal levels are >=30ng/mL. Vitamin D, 25-OH D3 Not Established Vitamin D, 25-OH D2 Not Established Performed By: #### [id number] ## ## [address] [address] VITAMIN B-12 Collected: 12:33 PM Status: F Source: [facility] TYPE CODE TESTS RESULT OUT OF RANGE REFERENCE UNITS LAB N(LOINC) VITAMIN B12 700 193 - 986 pg/mL Performed By: #### [id number] ## ## [address] [address] ALLERGIES No Allergies Records Found ENCOUNTERS ADMIT/DISCHARGE ACCOUNT NUMBER ADMITTING ENCOUNTER CLASS LOCATION SOURCE 02/22/2025/ 5 [id number] FERMIN GARCIA Emergency Buildin Room: ERBed: [address] [place] [address] 02/18/2025/ 5 [id number] RODNEY JACOME Ambulatory Building:[facility] 01/17/2025/ 5 [id number] LIZBETH RANDOLPH Ambulatory Building:[facility] 09/10/2024/ 5 [id number] YG COPELAND MD Ambulatory Building:[facility] 08/09/2024/ 5 [id number] SOFIA GALLARDO Ambulatory Building:[facility] 05/29/2024/ 4 [id number] [facility] Ambulatory Building:[facility] PAYERS ENCOUNTER GUARANTOR PAYER SUBSCRIBER SOURCE 02/22/2025 BIANCA SMITH: TR [address] [place] [address]Ynx: (HP) Primary [facility] OUT[facility] Number: [id number] Date:Plan Name: BIANCA Sasha SMITH: [id number] [address] [address] [facility] 02/18/2025 BIANCA SMITH: [address] [address]Wgs: (HP) Primary Insurance:[facility] OUTPATIENTPolicy Number: [id number] Date:Plan Name: BIANCA BISHOPB: [id number] [address] [address] [facility] 01/17/2025 BIANCA SMITH: [address] [address]Eji: (HP) Primary Insurance:[facility] OUTPATIENTPolicy Number: [id number] Date:Plan Name: BIANCA BISHOPB: [id number] [address] [address] [facility] 09/10/2024 BIANCA SMITH: [address] [address]Bmk: (HP) Primary [facility] OUTPATIENTPolic Number: [id number] Date:Plan Name:M3 BIANCA BISHOPB: [id number] [address] [address] [facility] 08/09/2024 BIANCA SMITH: [address] [address]Kct: () Primary Insurance:[facility] OUTPATIENTPolicy Number: [id number] Date:Plan Name:Marva SMITH: [id number] [address] [address] [facility]
[2025-03-26 14:30] LABS: Hematocrit 39.2 % (37-47); Hemoglobin 13.1 g/dL (12.0-15.0); Mean Corp Hgb Conc 33.4 g/dL (32-36); Mean Corpuscular Volume 89.1 fL (81-99); Mean Platelet Vol. 10.2 fl (6.2-12.0); Platelet Count 251 K/mm3 (150-450); RBC Distribution Width CV 12.2 % (11.6-14.6); RBC Distribution Width SD 40.0 fl (35.1-43.9); Red Blood Count 4.40 M/mm3 (4.2-5.4); White Blood Count 9.2 K/mm3 (4.4-11.0)
--- NOTE | 2025-04-01 08:49 | EKG12_ITS ---
Test Reason : PREOP Blood Pressure : */* mmHG Vent. Rate : 50 BPM Atrial Rate : 50 BPM P-R Int : 166 ms QRS Dur : 76 ms QT Int : 506 ms P-R-T Axes : 62 30 41 degrees QTcB Int : 461 ms Sinus bradycardia Otherwise normal ECG When compared with ECG of 14-May-2013 08:47, Aberrant conduction is no longer Present Confirmed by TONY GOMEZ, JOSE ([id number]), editor dictionary SAMMY EATON ([id number]) on 04/01/2025 1:50:40 PM Referred By: Catie Suárez Confirmed By: JOSE JIMENEZ MD
[2025-04-08] VITALS (10 sets, daily range): BP systolic 80–122; BP diastolic 54–72; PULSE 54–73; RESP 16; TEMP 36.3–36.6; O2SAT 100; BMI 25.2
--- NOTE | 2025-04-08 10:40 | PCM.HP.BLA ---
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 Allergies Penicillins Allergy (Verified 04/01/25 09:47) Hives Medications ?Medication ?Instructions ?Recorded ?Confirmed ?Type liothyronine 25 mcg tablet 12.5 mcg PO DAILY 05/14/13 04/01/25 History misoprostol 200 mcg tablet See Rx Instructions .Route 02/17/25 04/01/25 Rx (Cytotec) .COMPLEX #4 tabs magnesium 200 mg tablet 200 mg PO DAILY 03/25/25 04/01/25 History levothyroxine 175 mcg capsule 175 mcg PO QDAY 04/01/25 04/01/25 History Is last menstrual period known: Yes Last Menstrual Period: 03/31/25 [facility] : No [facility] History Alcohol use Thyroid disease Bladder disease Non-smoker Surgical History S/P LEEP Status post ablation of incompetent vein using laser S/P wisdom tooth extraction Family History Father Cancer Throat and mouth Grandfather Cancer Maternal- Unsure of type Social History household members: spouse current occupational status: employed current occupation: [employer] Smoking Status: Never smoker alcohol intake: current alcohol intake frequency: a few times a month substance use type: does not use seatbelt use: always do you feel safe at home: Yes 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 She reports skipping periods with manageable bleeding, changing pads or tampons every couple of hours, and no recent intermenstrual bleeding or bleeding with intercourse. A year ago, she experienced very heavy bleeding. The patient occasionally experiences pelvic aches and pains, though she finds it difficult to specify the nature of these pains. There is a discussion about the potential presence of a uterine polyp, which may or may not be clinically relevant. The patient is considering a laparoscopic bilateral salpingectomy for sterilization, which would also lower her risk of ovarian cancer. She has a history of urinary tract infections and is currently completing a course of antibiotics. Attestation: Documentation on this patient encounter was supported using ambient scribe technology/ voice AI technology. The patient consented to recording for the purpose of documenting the encounter. Provider reviewed content of the generated note prior to signature. Female Reproductive History Last Menstrual Period: 03/31/25 Menopausal Symptoms: No night sweats History 2 Elective abortions Hx Para 2 Spontaneous abortions Hx # Term Pregnancies Ectopic pregnancies Hx # Pregnancies Multiple births # of living children 2 Past Pregnancies Del. Date Name GA/Weeks Outcome Route Bth Weight Gen Labor Lgth Anesthesia Del Locatn Provider FOB Unknown Martha 2009 Unknown Elmer 2011 ROS Const Constitutional: Denies fatigue, night sweats, weight gain or weight loss ENT ENT: Reports system reviewed and no additional complaints, except as documented Cardio Card: Denies chest pain Resp Resp: Denies cough or dyspnea GI GI: Reports as per HPI; Denies abdominal pain, constipation, nausea or vomiting : Denies nipple discharge, urinary frequency, urinary incontinence, urinary hesitancy, urinary urgency, vaginal discharge, vaginal dryness, vaginal odor or vaginal pruritus Musc Musc: Denies arthralgias, back pain or muscle weakness Skin Skin/Breast: Denies alopecia, change in hair, dry skin, breast mass, breast pain, breast skin changes or nipple discharge Neuro Neuro: Reports system reviewed and no additional complaints, except as documented Psych Psych: Reports system reviewed and no additional complaints, except as documented Endo Endo: Denies cold intolerance, excessive sweating, heat intolerance or polydipsia Rodolfo/Lymph Hematologic/Lymphatic: Denies easy bleeding, Denies easy bruising and Denies lymphadenopathy Exam Const General: cooperative, healthy appearing, comfortable and no acute distress Orientation: alert HENMT Head: normal to inspection and normocephalic Ears: hearing grossly normal bilaterally and external ears normal Nose: external nose normal and nares normal Face and sinus: normal facial exam Neck Neck: normal visual inspection and no lymphadenopathy Thyroid: thyroid normal Chest Chest palpation & inspection: normal inspection of the chest Resp Effort & Inspection: normal respiratory effort Auscultation: clear to auscultation bilaterally Cardio Rate: regular rate Rhythm: regular rhythm Heart Sounds: S1 normal and S2 normal GI Inspection: normal to inspection and non-distended Palpation: soft and no hepatosplenomegaly Musc Other: gross motor intact no deficits, full bilateral strength Skin General: no rashes or lesions noted Neuro General: patient alert, patient awake, moves all extremities and no focal motor deficits Motor: muscle tone normal throughout Extrem General: normal to inspection and no pedal edema Psych Appearance: grossly normal Mental Status: mental status grossly normal Affect: normal affect Speech and Movement: speech and movement normal Coding Level of Care Code Off vis,est,level 4 Diagnoses Menorrhagia with irregular cycle N92.1 Endometrial polyp N84.0 Stenotic cervical os N88.2 Sterilization Z30.2 Assessment and Plan Assessment and Plan (1) Menorrhagia with irregular cycle: Status: Acute Comment: US 11.9mm lining. 1.1 cm endometrial polyp. wants IUD if insurance covers. Failed in office EMB(SM attempt also) Plan hysteroscopy D&C with SM. (2) Endometrial polyp: Status: Acute Comment: Plan hysteroscopy D&C with SM. (3) Stenotic cervical os: Status: Acute Comment: needs cytotec prior to D&C; failed in office EMB (4) Sterilization: Status: Acute Comment: plan laparoscopic BS Plan Assessment and Plan 44-year-old female with a history of menstrual irregularities presenting with concerns about sterilization options. The patient experiences irregular menstrual cycles with manageable bleeding and occasional pelvic pain, which may be related to a potential uterine polyp. She is considering a laparoscopic bilateral salpingectomy for sterilization, which would also reduce her risk of ovarian cancer. The patient has a history of urinary tract infections and is currently completing a course of antibiotics. 1. Menstrual Irregularities The patient is experiencing irregular menstrual cycles with manageable bleeding. The plan includes monitoring the bleeding pattern and considering further evaluation if symptoms persist or worsen. 2. Uterine Polyp A potential uterine polyp was discussed, and a hysteroscopy with polypectomy is planned to address this issue. 3. Laparoscopic Bilateral Salpingectomy For Sterilization The patient is considering a laparoscopic bilateral salpingectomy for sterilization, which would also lower her risk of ovarian cancer. The procedure is scheduled, and preoperative instructions have been provided. Patient Instructions: - Monitor menstrual bleeding patterns and report any significant changes. - Follow preoperative instructions for the upcoming laparoscopic bilateral salpingectomy. - Complete the current course of antibiotics for urinary tract infection and follow up if symptoms persist. UPDATE- I have seen the patient and performed any clinically relevant updates to the history and physical exam. Catie Suárez MD
[2025-04-08 10:51] LABS: Internal QC Validated? YES +Cl - CLEAR BKGD; Pregnancy, Urine Negative Negative; Record Kit Lot#,Urine Preg 0000980607
[2025-04-08] MEDS: Lactated Ringers 1,000 ML 15 ML IV (10:53)
--- NOTE | 2025-04-08 11:20 | PCM.PRE.AN2 ---
ASA Classification* ASA Classification ASA Classification: 2 Assessment & Plan Anesthesia* Anesthesia Assessment Anesthesia Assessment: Discussed sedation and/or anesthesia options, risks, benefits, and alternatives with patient/parents/legal guardian/POA. Questions invited. The patient/parents/legal guardian/POA seems to understand and agrees to proceed with anesthesia plan. Reviewed the physical assessment, medical history, allergy history and patient home medications list prior to surgery/procedure/anesthetic and documented any changes. Performed airway and anesthesia risk assessments. Anesthesia Type Anesthesia Type: MAC History Source History Obtained from:: Patient and Chart Anesthesia Focused Assessment* Temperature: 97.3 F Pulse Rate: 54 Blood Pressure: 122/54 Respiratory Rate: 16 Pulse Ox: 100 Oxygen Delivery Method: Room Air Airway Assessment Mouth opens: >3 cm Mallampati Score: I Teeth Condition: Caps/Crowns (Lower left molar has a cap. It is tight. Rest of the teeth are tight.) Neck Range of motion (ROM): Full ROM Labs Anesthesia Preop lab: CBC WBC, (4.4-11.0) 9.2 K/mm3 03/26/25, 13:44 RBC, (4.2-5.4) 4.40 M/mm3 03/26/25, 13:44 Hgb, (12.0-15.0) 13.1 g/dL 03/26/25, 13:44 Hct, (37-47) 39.2 % 03/26/25, 13:44 Plt Count, (150-450) 251 K/mm3 03/26/25, 13:44 CHEMISTRY Potassium, (3.5-5.1) 3.8 mmol/L 11/06/19, 10:16 Sodium, (136-145) 137 mmol/L 11/06/19, 10:16 BUN, (7-18) 21 mg/dL H 11/06/19, 10:16 Creatinine, (0.55-1.02) 1.01 mg/dL 11/06/19, 10:16 Glucose, (74-106) 85 mg/dL 11/06/19, 10:16 TSH, (0.358-3.74) 3.04 uIU/mL 04/21/12, 10:30 COAG Urine Test Negative Negative Today, 10:40 Tst Clinic Negative 02/17/25, 10:55 Pre-Assessment Diagnosis/Proposed Procedure Planned Operative Procedure(s): Hysteroscopy, D&C Symphion, Liletta Intrauterine Device Insertion Anesthesia History 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 When Was Last Pacemaker Check QUESTION #4 FULL TEXT: You/Your Family Experience fever (hyperthermia) with Anesthesia Last Oral Intake Last Oral intake: Last Oral Intake NPO since 08:30 04/08/25 10:46 Meds taken in AM with sips of Yes 04/08/25 10:46 water? Meds patient instructed to take am of surgery Any additional information?: Yes NPO since: : (Patient had water at 8:30 AM.) Meds taken in AM with sips of water?: Yes Meds patient instructed to take am of surgery: Levothyroxine, liothyronine. PONV PONV - mild disabilities teacher: PONV - mild disabilities teacher Female Yes 03/25/25 12:56 HX of Motion Sickness No 03/25/25 12:56 HX of N/V After Surgery Yes 03/25/25 12:56 Non-Smoker Yes 03/25/25 12:56 Duration of Surgery greater No 03/25/25 12:56 than 60 minutes Number of Risk Factors 3 03/25/25 12:56 PONV Score Moderate Risk 03/25/25 12:56 Height & Weight Height & Weight: Anesthesia: Height & Weight Height 5 ft 7 in 04/08/25 10:46 Weight: 73.3 kg 04/08/25 10:46 Body Mass Index (BMI) 25.2 04/08/25 10:46 Respiratory Assessment Respiratory Assessment - mild disabilities teacher: Respiratory Tract Infection Hx - mild disabilities teacher Hx Respiratory Tract Infection No 03/25/25 12:56 STOP Sleep Apnea STOP Sleep Apnea - mild disabilities teacher: STOP Sleep Apnea - mild disabilities teacher Hx Hypertension No 03/25/25 12:56 Hx Sleep Apnea No 03/25/25 12:56 CPAP BIPAP Do you snore loudly (louder No 03/25/25 12:56 than talking or can be heard Do you often feel tired/ No 03/25/25 12:56 fatigued/ sleepy during daytime? Has anyone observed you stop No 03/25/25 12:56 breathing during sleep? STOP Results Negative 03/25/25 12:56 QUESTION #5 FULL TEXT : Do you snore loudly (louder than talking or can be heard through closed doors)? 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 Specify any problems Hx of Preganancy in last 3 No 03/25/25 12:56 Months Nurse Filling Out Transfusion OLIVE 03/25/25 12:56 & Questions: Date: 03/25/25 03/25/25 12:56 Time: 12:57 03/25/25 12:56 Patient unable to answer at this time (ie. confused, unrespo /Reproduction History /Reproductive History - mild disabilities teacher: /Reproductive Hx- mild disabilities teacher Hx Now No 03/25/25 12:56 Gestational Age (in weeks): EDC: Hx Hx Para Hx Section SAB No 04/01/25 09:46 Active Medications Active Medications: Current Medications Generic Name Dose Route Start Last Admin Trade Name Freq PRN Reason Stop Dose Admin Lactated Ringer's 1,000 mls @ 15 mls/hr 04/08/25 10:45 04/08/25 10:53 IV 15 mls/hr .Q48H ECHO Administration PFSH Medical History Alcohol use Thyroid disease Bladder disease Non-smoker Home Medications ?Medication ?Instructions ?Recorded ?Last Taken ?Type liothyronine 25 mcg tablet 12.5 mcg PO DAILY 05/14/13 04/08/25 History misoprostol 200 mcg tablet See Rx Instructions .Route 02/17/25 Unknown Rx (Cytotec) .COMPLEX #4 tabs magnesium 200 mg tablet 200 mg PO DAILY 03/25/25 Unknown History levothyroxine 175 mcg capsule 175 mcg PO QDAY 04/01/25 04/08/25 08:00 History Allergy/AdvReac Type Severity Reaction Status Date / Time Penicillins Allergy Hives Verified 04/08/25 10:43 Family History Father Cancer Throat and mouth Grandfather Cancer Maternal- Unsure of type Surgical History S/P LEEP Status post ablation of incompetent vein using laser S/P wisdom tooth extraction Social History household members: spouse current occupational status: employed current occupation: [employer] Smoking Status: Never smoker alcohol intake: current alcohol intake frequency: a few times a month substance use type: does not use seatbelt use: always do you feel safe at home: Yes 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
--- NOTE | 2025-04-08 11:55 | FALS_PTH ---
PATIENT: BIANCA RAO LOC: [facility] U#:[id number] AGE/SX: 44/F ROOM: RE04/08/[address]: Dr. Catie Suárez MD : 1980 BED: DIS: 04/08/2025 SPEC #: [id number] RECD: 04/08/25 15:21 STATUS: JAYDEN REQ #: [id number] JACQUELINE: 04/08/25 11:[address]: Catie Suárez DEPT: SURGICAL PATHOLOGY RECD BY: Uli Maldonado ENTERED: 04/09/25 14:59 SP TYPE: FALL TUBES OTHR DR: No Primary Care Phys Tissues: A - Fallopian tube B - Endometrium, NOS Procedures: Surgery Specimen Level II Surgery Specimen Level IV HEADER OPERATION: Hysteroscopy, D&C, polypectomy, laparoscopic bilateral salpingectomy PRE-OP DIAGNOSIS: Menorrhagia with irregular cycle, endometrial polyp, stenotic cervical os, sterilization TISSUE SUBMITTED: A- Bilateral fallopian tubes, B- Endometrial curettings and polyp MICROSCOPIC DIAGNOSIS A. Fallopian tubes, laparoscopic bilateral salpingectomy: * No specific pathologic change (complete luminal cross-section confirmed), x2. B. Endometrium, curettage / polypectomy: * Fragments of proliferative endometrium with focal changes suggestive of endometrial polyp. MICROSCOPIC DESCRIPTION Slides are reviewed. GROSS DESCRIPTION Received in 2 formalin containers labeled with the patient's name and date of . Designated as: A. Bilateral fallopian tubes are 2 dark red-purple, fimbriated fallopian tubes devoid of orientation, measuring 8.1 x 0.8 cm and 8.3 x 0.8 cm. A 0.6 cm paratubal cyst is identified on the shorter fallopian tube. Smash Hand sections are submitted in 2 cassettes as follows: A1: [place] fallopian tube and paratubal cystA2: Longer fallopian tube B. Endometrial curettings and polyp is a 3.1 x 2.6 x 0.8 cm aggregate of pink-red tissue fragments and clotted blood. Entirely submitted in 2 cassettes. [place] 04/09/2025 A. Additional sales representative advertising cross-sections of the longer fallopian tube are submitted in cassette A3, following histopathologic review. TX 04/17/2025 CPT:01571,09191
[2025-04-08] MEDS: Lactated Ringers 1,000 ML 1000 ML IV (13:00)
[2025-04-08] MEDS: Lidocaine 1% (5 ml sdv) 5 ML Vial IV (13:05)
[2025-04-08] MEDS: fentaNYL 100 MCG/2 ML Ampul IV (13:51)
[2025-04-08] MEDS: Ketorolac 30 MG/ML Syringe IV (13:52)
--- NOTE | 2025-04-08 13:57 | PCM.OPRPT ---
Problems Associated Problem List Diagnoses (1) Endometriosis determined by laparoscopy: (2) Status post hysteroscopy: (3) Status post bilateral salpingectomy: Multi Select Codes Urinary/Genital Urinary/Genital CPT Codes: 76929 Hysteroscopy, Polypectomy, Symphion and 21041 Laproscopic BS/O Operative Report (Standard) Operative Information Date of Procedure: 04/08/25 Pre-Operative Diagnosis: Endometrial polyp sterilization desired irregular bleeding Post-Operative Diagnosis: Same plus endometriosis Surgery/Procedure Performed: D&C hysteroscopy polypectomy laparoscopic bilateral salpingectomy ablation of several endometriosis implants geophysical support specialist: No Type of Anesthesia: General RN Documented Start/Stop Times: Operation Date: 04/08/25 11:55 Case Time Into Pre-Op 04/08/25 10:43 Anesthesia Start 04/08/25 13:00 Into Room 04/08/25 13:00 Procedure Start 04/08/25 13:25 Procedure End 04/08/25 13:54 Procedure Start Time: 13:25 Procedure Stop Time: 13:54 Select all DRAINS/GRAFTS/IMPLANTS that apply: None (Urine drained at the beginning of the procedure) Estimated Blood Loss: 50 Specimen collected: Yes Description of specimen(s) removed: Endometrial curettings endometrial polyp and bilateral tubes Description of surgery: Patient was taken in the operating room and was placed under general anesthesia was prepped and draped in normal sterile fashion in the dorsal lithotomy position. Bladder was drained of clear urine and SCDs were on preoperatively. Uterus was sounded and a uterine manipulator was placed after dilating. Attention was then paid to the abdominal portion of the procedure and the umbilicus was elevated with towel clamps and injected with Marcaine and after a 5 mm incision was made and the Veress needle was entered into the abdomen confirmed to be intra-abdominal with a low opening pressure of less than 5 mmHg. Abdomen was insufflated with CO2 gas and a 5 mm optical trocar was placed under direct visualization. A left lower quadrant 5 mm port and a 5 mm port suprapubically were placed under direct visualization. Uterus was well visualized and bilateral fallopian tubes identified and bilateral tubes were elevated and transecting across the mesosalpinx and the attachment to the uterine corpus bilaterally the tubes were removed without complication. Excellent hemostasis was noted. Fallopian tubes were removed through the lower port sites without complication. 5 small endometriosis implants were noted on the anterior cul-de-sac which were ablated with monopolar scissors without complication. No other implants were noted in the pelvis or upper abdomen. liver and upper abdomen were visualized notably within normal limits and no other gross abnormalities were seen in the abdomen. All instruments removed from the abdomen after gas was desufflated. Port sites were closed with 3-0 Monocryl Steri's and op sites were applied. A weighted speculum was placed in the vagina and the anterior lip of the cervix was grasped with a single-tooth tenaculum. A paracervical block was placed with 1% lidocaine. Cervix was progressively dilated to allow passage of a 5 mm hysteroscope. The lining was fully visualized and noted to have a posterior endometrial polyp present. Uterine sounded to 8 cm. Using the symphion device the polypectomy was performed without complication and curettage was performed under direct visualization, sent to pathology. All instruments were removed from the vagina and excellent hemostasis was noted. Patient was awoken and taken to recovery in stable condition. Surgical Findings: Endometrial polyp endometriosis implants in the abdomen on the anterior cul-de-sac stage I Complications Complications: No
--- NOTE | 2025-04-08 14:02 | DCINST_ITS ---
Discharge Instructions DC O2, CPAP, BIPAP needs Home O2 Discharge instructions: No Dressing / Incision Discharge Activity: Return to Normal Activity, May Not Drive ( while taking narcotic pain meds, when pain free), May Shower and May Take a Tub Bath (in 7 days) May resume sexual activity in: 1 week Weight Bearing Status: Full weight bearing Dressing / Incision Call your doctor if your incision/area has: Continuous Slow Oozing, Sudden Increased Bleeding, Increased Pain/ Swelling, Increased Redness and Foul Smelling Discharge Call your doctor if you observe: Fever of 101 or Higher, Using more than 1 pad per hour, Shortness of breath, Chest pain and Uncontrolled pain Suture Line Care: Avoid Pulling/Pushing and Avoid Pinching/Bending Remove Dressing in: 1 week (if present) Cleanse incision/area with: Soap & Water and Keep Dressing Clean & Dry Follow Up Care When: Call to make an appointment with your doctor for a fu/incision check in 1- 2 weeks. Test Results: Test results from this visit will be discussed in further detail at your follow- up appointment, if applicable. Discharge Plan Admission Attending Provider: Catie Suárez Primary Care Provider: Care Physician,Myriam Primary Instructions Print Language: Divehi Discharge Orders/Prescriptions Prescriptions: New oxycodone-acetaminophen [Percocet] 5-325 mg tablet 1 tab PO Q4H PRN (Reason: pain) 7 Days Qty: 8 0RF naproxen 500 mg tablet 500 mg PO BID PRN PRN (Reason: Pain) Qty: 30 1RF ondansetron 4 mg tablet,disintegrating 4 mg PO Q8H PRN (Reason: nausea and vomiting) Qty: 14 0RF No Action levothyroxine 175 mcg capsule 175 mcg PO QDAY Rx Instructions: one tab daily except Monday takes 2 tabs misoprostol [Cytotec] 200 mcg tablet See Rx Instructions .Route .COMPLEX Qty: 4 0RF Rx Instructions: 200 mcg 2 tab per vagina night prior to insertion and repeat 12 hour later liothyronine 25 MCG tablet 12.5 mcg PO DAILY magnesium 200 mg tablet 200 mg PO DAILY Referrals / Follow Up: Bobby Brooks MD [Non-Staff, Medical] Disposition Disposition (needs filled in before D/C Order can be placed): Home, Self Care
--- NOTE | 2025-04-08 14:18 | PCM.POST.ANE ---
Anesthesia: Postop Eval I Current Vital Signs Temperature: 97.8 F Pulse Rate: 73 Blood Pressure: 115/59 Respiratory Rate: 16 Pulse Ox: 100 Oxygen Delivery Method: Nasal Cannula Oxygen Flow Rate (L/min): 3 Assessment Airway patent: Yes Spontaneous unlabored respirations: Yes Mental status: Awake nausea: No Vomiting: No Anesthesia Complication: No Fluid Hydration Crystalloid volume administer (ml): 1,000 Total IV fluid infused: 1,000 Progress Note Anesthesia document: Postop Eval 1 completed: Yes
--- NOTE | 2025-04-08 15:49 | SUR.PHASEII ---
patient states she is tired of waiting for prescriptions from hospital and would like them transferred to [facility] pharmacy in [place]. Explained to her that the naproxen and zofran can be transferred but the percocet cannot. Pt voiced understanding and states that she would like the two that can be transferred to e transferred and to leave the percocet at [facility] pharmacy and if she feels the need for it she will send someone to get it. Called [facility] pharmacy and explained the situation to Rachel. She states the zofran and naproxen will be transferred to [facility] pharmacy in [place].
--- NOTE | 2025-04-08 22:32 | POSTOPAN2_ITS ---
Anesthesia Postop Eval I Sum Postop Eval Completion status Anesthesia document: Postop Eval 1 completed: Yes Anesthesia Postop Eval I Summary Anesthesia Postop Eval I Summary: Anesthesia Postop Eval I: Assessment Summary Airway patent Yes 04/08/25 14:19 [email or web address] [email or web address] Spontaneous unlabored Yes 04/08/25 14:19 CERAMICS MACHINE [email or web address] respirations Mental status Awake 04/08/25 14:19 CERAMICS MACHINE [email or web address] nausea No 04/08/25 14:19 CERAMICS MACHINE [email or web address] Vomiting No 04/08/25 14:19 [email or web address] MACHINE [email or web address] Anesthesia Postop Eval I: Fluid Summary Crystalloid volume administer 1,000 04/08/25 14:19 CERAMICS MACHINE [email or web address] (ml) Colloids volume administered ( ml) Blood Product volume administered (ml) Total IV fluid infused 1,000 04/08/25 14:19 CERAMICS MACHINE [email or web address] Anesthesia Postop Eval I: Summary Notes Anesthesia Complication No 04/08/25 14:19 CERAMICS MACHINE [email or web address] Anesthesia Complication Comment: Post-operative progress note Anesthesia: Postop Eval II Evaluation Mental status: Awake and Calm Pain Level: 1 nausea: No Vomiting: No Complications Anesthesia Complication: No
--- NOTE | 2025-04-08 22:32 | PCM.POSTANE2 ---
Anesthesia Postop Eval I Sum Postop Eval Completion status Anesthesia document: Postop Eval 1 completed: Yes Anesthesia Postop Eval I Summary Anesthesia Postop Eval I Summary: Anesthesia Postop Eval I: Assessment Summary Airway patent Yes 04/08/25 14:19 [email or web address] Spontaneous unlabored Yes 04/08/25 14:19 [email or web address] respirations Mental status Awake 04/08/25 14:19 [email or web address] nausea No 04/08/25 14:19 [email or web address] Vomiting No 04/08/25 14:19 [email or web address] Anesthesia Postop Eval I: Fluid Summary Crystalloid volume administer 1,000 04/08/25 14:19 [email or web address] (ml) Colloids volume administered ( ml) Blood Product volume administered (ml) Total IV fluid infused 1,000 04/08/25 14:19 [email or web address] Anesthesia Postop Eval I: Summary Notes Anesthesia Complication No 04/08/25 14:19 [email or web address] Anesthesia Complication Comment: Post-operative progress note Anesthesia: Postop Eval II Evaluation Mental status: Awake and Calm Pain Level: 1 nausea: No Vomiting: No Complications Anesthesia Complication: No
== END 2025-04-08 15:54 | disposition home or self-care (01) ==
LOC: SDC 10:21 → AC 10:23
PROVIDERS: Referring Provider Obstetrics & Gynecology; Visit Provider Obstetrics & Gynecology
PROC: 0UB98ZZ Excision of Uterus, Via Natural or Artificial Opening Endoscopic (ICD-10-PCS; CPT 58558; principal; 2025-04-08 11:40)
DX: N80.319 Endometriosis of the anterior cul-de-sac, unspecified depth (principal); N84.0 Polyp of corpus uteri; Z79.890 Hormone replacement therapy; N92.1 Excessive and frequent menstruation with irregular cycle; Z30.2 Encounter for sterilization; E07.9 Disorder of thyroid, unspecified; Z79.899 Other long term (current) drug therapy
CPT/HCPCS: 58662; 58558; 58661; 00840; 36415; 81025; 85027; 86850; 86900; 86901; 88302; 88305; 88309; 93005; J2405

== ENCOUNTER → 2025-04-30 | Outpatient (CLI) | payer OTHER, SELFPAY ==
[2025-04-30 12:20] LABS: Hematocrit 34.5 % (37-47); Hemoglobin 11.3 g/dL (12.0-15.0); Immature Granulocytes Count 0.030 X10^3/uL (0.0-0.0); Mean Corp Hgb Conc 32.8 g/dL (32-36); Mean Corpuscular Volume 89.8 fL (81-99); Mean Platelet Vol. 10.2 fl (6.2-12.0); NRBC Flagged by Analyzer 0 % (0-5); Platelet Count 229 K/mm3 (150-450); RBC Distribution Width CV 12.0 % (11.6-14.6); RBC Distribution Width SD 39.5 fl (35.1-43.9); Red Blood Count 3.84 M/mm3 (4.2-5.4); White Blood Count 6.1 K/mm3 (4.4-11.0)
== END | disposition home or self-care (01) ==
PROVIDERS: Visit Provider Nurse Practitioner Women's Health
DX: R10.20 Pelvic and perineal pain unspecified side (principal)
CPT/HCPCS: 36415; 85025

== ENCOUNTER 2025-05-02 08:53 | Emergency (ER) | payer OTHER, SELFPAY ==
[2025-05-02 08:54] VITALS: BP 130/63; PULSE 57; RESP 15; TEMP 36.8; O2SAT 100; BMI 25.2
--- NOTE | 2025-05-02 09:05 | EDS_ITS ---
HPI HPI - GI History of Present Illness Chief Complaint: Abd Pain Narrative Narrative: Patient is a 45-year-old female presenting to the emergency department for abdominal pain. She is 3 weeks postop from a hysteroscopy D&C, removal endometrial polyp, laser of endometriosis, bilateral salpingectomy. Was seen by OBGYN on 04/30 when she had lower abdominal pain after lifting a bag of salt. Had CBC and pelvic US ordered at that visit but is unable to have ultrasound done until Monday of next week. Patient states that she has had the lower abdominal pain for 3 days. States that initially started as a severe burning pain in her lower abdomen and progressed to feeling very bloated. Endorses decreased appetite and chills last night. Denies fever, chest pain, SOB, diarrhea. States she hasn't had normal BMs because she hasn't been eating much. Denies dysuria or hematuria. PFSH PFSH Medical History Status post hysteroscopy (04/08/25) Alcohol use Thyroid disease Bladder disease Non-smoker Home Medications ?Medication ?Instructions ?Recorded ?Last Taken ?Type liothyronine 25 mcg tablet 12.5 mcg PO DAILY 05/14/13 04/08/25 History levothyroxine 175 mcg capsule 175 mcg PO QDAY 04/01/25 04/08/25 08:00 History hydrocodone-acetaminophen 5-325mg 1 tab PO Q6H PRN PRN Pain 3 days 05/02/25 Unknown Rx 5mg-325mg #10 TABLETS Allergy/AdvReac Type Severity Reaction Status Date / Time Penicillins Allergy Hives Verified 05/02/25 08:53 Family History Father Cancer Throat and mouth Grandfather Cancer Maternal- Unsure of type Surgical History Status post bilateral salpingectomy (04/08/25) S/P LEEP Status post ablation of incompetent vein using laser S/P wisdom tooth extraction Social History household members: spouse current occupational status: employed current occupation: [employer] Smoking Status: Never smoker alcohol intake: current alcohol intake frequency: a few times a month substance use type: does not use seatbelt use: always do you feel safe at home: Yes 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 No acute distress HEENT: Head is normocephalic and atraumatic, sinuses nontender, pupils equal round and reactive. Nares are patent. Oropharynx and throat exams normal. Neck: Supple without lymphadenopathy nontender Cardiovascular: Regular rate and rhythm, no murmurs. No rubs or gallops. Normal S1 and S2 Respiratory: Clear to auscultation bilaterally. No wheezes, rales, rhonchi Abdominal: Soft and tender to palpation in the suprapubic and right lower quadrants. Normal bowel sounds. No guarding or rebound. Extremities: No tenderness. No bruising. Normal range of motion. Normal sensation. Skin: No rash or redness. The rest of the physical exam is unremarkable Const Vital Signs: 05/02/25 08:54 05/02/25 10:53 05/02/25 12:00 Temperature 98.2 F Temperature Source Oral Pulse Rate 57 L 56 L 56 L Respiratory Rate 15 14 14 Blood Pressure 130/63 H 100/44 L 100/56 L Blood Pressure Mean 85 62 70 Pulse Ox 100 99 99 Oxygen Delivery Method Room Air 05/02/25 12:32 Temperature 98.3 F Temperature Source Pulse Rate 67 Respiratory Rate 14 Blood Pressure 118/70 Blood Pressure Mean 86 Pulse Ox 96 Oxygen Delivery Method MDM MDM MDM Narrative Medical decision making narrative: Patient is a 45-year-old female presenting the emergency department for lower abdominal pain for the past 3 days. Patient was seen and examined. Vitals are stable. Patient resting in bed comfortably no acute distress. Given the recent surgery 3 weeks ago, CT of the abdomen pelvis will be obtained. Labs also ordered. Patient states she needs to be able to drive after this and request no narcotics to be given. If imaging is negative for any acute cervical pathology then we will give the patient Toradol. CBC with mild leukopenia 4.1, mild anemia that has been consistent and stable at 11.3. CMP with no significant abnormalities. Normal kidney functioning. Normal lactate less than 1.0. Normal lipase of 21. Urinalysis with no evidence of urinary tract infection. Urine is negative. Called by radiology with results of CT, small amount of hematoma in the pelvis. On-call WAREHOUSE LOGISTICS MANAGER for [place], Dr. Sawyer was consulted. She asked for radiology to include specific measurements of the hematoma given this will influence next steps. Type and screen was sent. Dr. Suárez who performed the surgery is here today and Dr. Sawyer spoke with her about the patient. Dr. Teo Branham evaluated the patient here in emergency department. She does not think the patient needs acute surgical intervention for the hematoma. She recommended a repeat CBC to ensure stable hemoglobin which was obtained and is stable at 11.2. Patient does not want to be admitted for pain control and feels comfortable going home with a prescription for narcotics if she needs these. Dr. Carlos Alberto Branham recommended discharge given that the patient does not want to be admitted for pain management. She asked that a prescription for narcotics be prescribed to the patient upon discharge. Patient was reevaluated and feels comfortable with the plan. She has had stable vital signs the entire time she has been here. She was instructed to return if she develops any worsening pain, nausea, vomiting, fevers or chills. Patient discharged from the Emergency Department. I do not feel that the patient's evaluation reveals any acute reason for admission at this time. I instructed them to either follow-up with their primary care physician or promptly return to the Emergency Department for reevaluation should symptoms worsen or new symptoms develop. I explained what symptoms would indicate the need to return to the emergency department. Shared decision making was used. The patient voiced understanding of the treatment plan and is agreeable with it. Clinical impression: Hematoma in pelvis History & Record Review Discussion w/independent historian: Patient Additional record(s) reviewed:: Prior outpatient record Lab Data Attestation: I reviewed the patient's lab results. Labs: Laboratory Results - last 24 hr 05/02/25 05/02/25 05/02/25 09:20 09:50 10:55 WBC 4.1 L RBC 3.85 L Hgb 11.3 L Hct 33.8 L MCV 87.8 MCH 29.4 MCHC 33.4 RDW Std Deviation 37.9 RDW Coeff of Danial 11.9 Plt Count 215 MPV 9.5 Immature Gran % (Auto) 0.500 Neut % (Auto) 60.1 Lymph % (Auto) 22.9 [place] % (Auto) 14.5 H Eos % (Auto) 1.5 Baso % (Auto) 0.5 Absolute Neuts (auto) 2.4 Absolute Lymphs (auto) 0.93 Nucleated RBC % 0 Sodium 139 Potassium 3.9 Chloride 102 Carbon Dioxide 28.5 Anion Gap 8 BUN 16 Creatinine 0.93 Estim Creat Clear Calc 72.72 Est GFR (MDRD) Non-Af 76 BUN/Creatinine Ratio 17.4 Glucose 99 Lactic Acid < 1.0 Calcium 9.1 Total Bilirubin 0.61 AST 25 ALT 22 Alkaline Phosphatase 37 Total Protein 6.9 Albumin 4.2 Globulin 2.6 Albumin/Globulin Ratio 1.6 Lipase 21 Urine Color Straw Urine Clarity Sl. Cloudy Urine pH 7.0 Ur Specific [place] 1.010 Urine Protein 15 H Urine Glucose (UA) Normal Urine Ketones Negative Urine Occult Blood Negative Urine Nitrite Negative Urine Bilirubin Negative Urine Urobilinogen Normal Ur Leukocyte Esterase Negative Urine RBC 0 SEEN Urine WBC 0 SEEN Ur Squamous Epith Cells 0-5 SEEN Urine Bacteria 0 SEEN Urine Mucus 0 SEEN Urine Test Negative Blood Type A POSITIVE Antibody Screen NEGATIVE 05/02/25 12:05 WBC RBC Hgb 11.2 L Hct 33.2 L MCV MCH MCHC RDW Std Deviation RDW Coeff of Danial Plt Count MPV Immature Gran % (Auto) Neut % (Auto) Lymph % (Auto) [place] % (Auto) Eos % (Auto) Baso % (Auto) Absolute Neuts (auto) Absolute Lymphs (auto) Nucleated RBC % Sodium Potassium Chloride Carbon Dioxide Anion Gap BUN Creatinine Estim Creat Clear Calc Est GFR (MDRD) Non-Af BUN/Creatinine Ratio Glucose Lactic Acid Calcium Total Bilirubin AST ALT Alkaline Phosphatase Total Protein Albumin Globulin Albumin/Globulin Ratio Lipase Urine Color Urine Clarity Urine pH Ur Specific [place] Urine Protein Urine Glucose (UA) Urine Ketones Urine Occult Blood Urine Nitrite Urine Bilirubin Urine Urobilinogen Ur Leukocyte Esterase Urine RBC Urine WBC Ur Squamous Epith Cells Urine Bacteria Urine Mucus Urine Test Blood Type Antibody Screen Radiography Diagnostic Testing: Clinical Impression(s) from Imaging Studies Abdomen/Pelvis CT 05/02/25 09:17 IMPRESSION: Small amount of hematoma in the pelvis. Findings were discussed with Dr. Gardiner 05/02/2025 10:32 a.m. Reading Location: [facility] Discharge Plan Triage Chief Complaint: Abd Pain ED Provider: Shira Gardiner Dx/Rx/DC Orders Clinical Impression: Female pelvic hematoma Instructions: ED Hematoma Prescriptions: New hydrocodone-acetaminophen 5-325 mg tablet 1 tab PO Q6H PRN PRN (Reason: Pain) 3 Days Qty: 10 0RF No Action levothyroxine 175 mcg capsule 175 mcg PO QDAY Rx Instructions: one tab daily except Monday takes 2 tabs liothyronine 25 MCG tablet 12.5 mcg PO DAILY Primary Care Provider: Care Physician,No Primary Referrals: Catie Suárez MD [Med Staff - Active Staff, Obstetrics-Gynecology (OBGYN)] - As soon as possible Care Physician,No Primary [Primary Care Provider, Medical] Activity Restrictions/Additional Instructions: Take the pain medication every 6-8 hours as needed. Follow-up with Dr. Carlos Alberto Branham as soon as possible. Return to the emergency department with any worsening abdominal pain, fevers, nausea, vomiting. Your evaluation in the Emergency Department did not reveal any acute reason for admission. However, I want to emphasize that you may be early in the course of a disease process or illness even if it is not present. For this reason you should follow-up within 24 hours for reevaluation with either your primary care physician or if necessary back here in the Emergency Department. You should return to the Emergency Department immediately if your symptoms worsen or new symptoms develop. Print Language: Hungarian Disposition Disposition: Home, Self Care Discharge Date/Time: 05/02/25 12:33
--- NOTE | 2025-05-02 09:17 | CT_ITS ---
PROCEDURE: ABDOMEN/PELVIS W IV CONT ONLY 05/02/2025 REASON FOR EXAM: LOWER ABD PAIN, SURGERY 3 WEEKS AGO TECHNIQUE: Procedure Code: [id number] Modality: CT Procedure: ABDOMEN/PELVIS W IV CONT ONLY Coronal and Sagittal reconstruction series were provided. CONTRAST: Isovue 370 VOLUME: 97 mL One or more dose reduction techniques were used (e.g., Automated exposure control, adjustment of the mA and/or kV according to patient size, use of iterative reconstruction technique. RADIATION DOSE SUMMARY: CTDlvol: 12.2 mGy DLP: 642.88 mGycm COMPARISON: None. FINDINGS: Lung bases: Clear. Liver: Unremarkable. Gallbladder: Unremarkable. Spleen: Unremarkable. Pancreas: Unremarkable. Adrenals: Unremarkable. Kidneys: No hydronephrosis. No nephrolithiasis. Bladder: Unremarkable. Reproductive Organs: Bowel: No bowel wall obstruction. No bowel wall thickening. Appendix: Unremarkable. Lymph nodes: No lymphadenopathy. Vasculature: No aneurysm. Peritoneum / Retroperitoneum: Small amount of hypodense fluid consistent with hematoma in the pelvis.. Bones: No acute bony abnormalities. CT/Abdomen/Pelvis W IV Cont ONLY IMPRESSION: Small amount of hematoma in the pelvis. Findings were discussed with Dr. Gardiner 05/02/2025 10:32 a.m. Reading Location: [facility] BEDS AT [facility]
[2025-05-02 09:29] LABS: Hematocrit 33.8 % (37-47); Hemoglobin 11.3 g/dL (12.0-15.0); Immature Granulocytes Count 0.020 X10^3/uL (0.0-0.0); Mean Corp Hgb Conc 33.4 g/dL (32-36); Mean Corpuscular Volume 87.8 fL (81-99); Mean Platelet Vol. 9.5 fl (6.2-12.0); NRBC Flagged by Analyzer 0 % (0-5); Platelet Count 215 K/mm3 (150-450); RBC Distribution Width CV 11.9 % (11.6-14.6); RBC Distribution Width SD 37.9 fl (35.1-43.9); Red Blood Count 3.85 M/mm3 (4.2-5.4); White Blood Count 4.1 K/mm3 (4.4-11.0)
[2025-05-02 09:52] LABS: AST(SGOT) 25 U/L (<=31); Alanine Aminotransfer ALT/SGPT 22 U/L (<=34); Albumin, Serum 4.2 g/dL (3.5-5.0); Alkaline Phosphatase 37 U/L (35-104); Anion Gap 8 (5-15); BUN 16 mg/dL (4-19); BUN/Creat Ratio 17.4 RATIO (10-20); Calcium,Total 9.1 mg/dL (7.6-11.0); Carbon Dioxide 28.5 mmol/L (21.0-32.0); Chloride 102 mmol/L (98-108); Estimated Creatinine Clearance 72.72 ml/min (50-250); Globulin 2.6 g/dL (2.2-4.2); Glucose 99 mg/dL (70-99); Lipase 21 U/L (13-75); Potassium 3.9 mmol/L (3.3-5.1)
[2025-05-02 09:56] LABS: Mucous, Urine 0 SEEN /hpf (<or=2+); Red Blood Cells-Urine 0 SEEN /hpf (0-5)
[2025-05-02 09:58] LABS: Color, Urine Straw (Yellow); Glucose, Dipstick Normal (Normal); Ketone-Dipstick Negative (Negative); Leukocyte Esterase-Dipstick Negative /ul (Negative); Nitrite-Dipstick Negative (Negative); Occult Blood-Urine Negative /ul (Negative); Protein-Dipstick 15 mg/dl (Negative); Specific Gravity, Urine 1.010 (1.002-1.030); Urine Bilirubin Dipstick Negative (Negative)
[2025-05-02 10:05] LABS: Internal QC Validated? YES +Cl - CLEAR BKGD; Pregnancy, Urine Negative Negative; Record Kit Lot#,Urine Preg 0000980607; Squamous Epithelial Cells - UA 0-5 SEEN /hpf (5-10)
[2025-05-02 10:53] VITALS: BP 100/44; PULSE 56; RESP 14; O2SAT 99
[2025-05-02 12:00] VITALS: BP 100/56; PULSE 56; RESP 14; O2SAT 99
[2025-05-02 12:18] LABS: Hematocrit 33.2 % (37-47); Hemoglobin 11.2 g/dL (12.0-15.0)
[2025-05-02 12:32] VITALS: BP 118/70; PULSE 67; RESP 14; TEMP 36.8; O2SAT 96
== END 2025-05-02 12:33 | disposition home or self-care (01) ==
PROVIDERS: Emergency Provider Student in an Organized Health Care Education/Training Program; Visit Provider Student in an Organized Health Care Education/Training Program
DX: S37.92XA Contusion of unspecified urinary and pelvic organ, initial encounter (principal); Z98.890 Other specified postprocedural states; X58.XXXA Exposure to other specified factors, initial encounter
CPT/HCPCS: 74177; 80053; 81001; 81025; 83605; 83690; 85014; 85018; 85025; 86850; 86900; 86901; 99283; Q9967; A4216

== ENCOUNTER → 2025-05-05 | Outpatient (CLI) | payer OTHER, SELFPAY ==
[2025-05-05 12:24] LABS: Hematocrit 36.2 % (37-47); Hemoglobin 12.1 g/dL (12.0-15.0); Immature Granulocytes Count 0.020 X10^3/uL (0.0-0.0); Mean Corp Hgb Conc 33.4 g/dL (32-36); Mean Corpuscular Volume 88.9 fL (81-99); Mean Platelet Vol. 10.3 fl (6.2-12.0); NRBC Flagged by Analyzer 0 % (0-5); Platelet Count 273 K/mm3 (150-450); RBC Distribution Width CV 11.9 % (11.6-14.6); RBC Distribution Width SD 37.8 fl (35.1-43.9); Red Blood Count 4.07 M/mm3 (4.2-5.4); White Blood Count 7.0 K/mm3 (4.4-11.0)
== END | disposition home or self-care (01) ==
PROVIDERS: Visit Provider Obstetrics & Gynecology
DX: N94.89 Other specified conditions associated with female genital organs and menstrual cycle (principal)
CPT/HCPCS: 36415; 85025